=== PATIENT | female | born 1985 | race Caucasian/White ===

== ENCOUNTER 2018-09-25 10:09 | Day surgery (SDC) | payer OTHER ==
[2018-09-25 10:51] VITALS: BP 128/73; TEMP 98.7; BMI 22.2
[2018-09-25 11:17] LABS: Bilirubin Negative (Negative); Blood, Urine Large (Negative); Clarity CLEAR (Clear); Glucose, Urine (Dipstick) Negative (Negative); Leukocyte Negative (Negative); Nitrite Negative (Negative); Protein, Urine (Dipstick) Negative (Neg-Trace); Specific Gravity, Urine 1.003 (1.002-1.036); Urobilinogen 0.2 mg/dL (0.2-1.0); pH, Urine 7.5 (5.0-9.0)
[2018-09-25 11:23] LABS: Bacteria/HPF None Seen HPF (None Seen); Hyaline Casts/LPF 0-3 HYALINE CAST LPF (0-3 Hyaline); Pathc Cast-AUWi Flag 0.43 (0-2.49); RBC/HPF 21-50 HPF (0-3); Squamous Epithelial 0-3 HPF (0-3); WBC/HPF None Seen HPF (0-3)
--- NOTE | 2018-09-25 12:15 | PDOC.LDHP ---
Labor and Delivery H&P Chief complaint: other (back pain, suprapubic pressure) HPI: 33 y/o at 27w5d, patient of Dr. Ansari, presents with urinary frequency, dysuria, and right flank pain. She reports she has had urinary frequency for the last few days but today had a sudden onset of pain and dysuria. Has history of kidney stones and UTI. Also c/o occasional ctx. Denies VB, LOF, or decreased FM. ROS neg for HEENT, cv, pulm, gi, gu, neuro, psych, skin, musculoskeletal or constitutional symptoms other than mentioned above. OB History Details: 1 prior term Current complications: other (subchorionic hematoma - resolved) Past Medical History: UTIs, PCOS, kidney stones Current medications: pre-jc vitamins Previous surgical history: none Allergies/Adverse Reactions: Allergies Allergy/AdvReac Type Severity Reaction Status Date / Time No Known Allergies Allergy Verified 09/25/18 10:43 Social history: none - Physical Exam Vital signs reviewed and normal: yes General: NAD, resting Lungs: nonlabored breathing Abdomen: gravid Extremeties: no edema FHT: category 1 (140s, mod variability, + accels, no decels) Leigh contractions every: occasional - Vaginal Exam cm dilated: 1 (FT, unchanged after 1 hour) Effacement: 25% Station: -3 - Assessment 33 y/o at 27w5d with 8mm right sided kidney stone on US. Given Rx for flomax and Tylenol #3, disp #15. - Plan -: D/c home with precautions. Advised to follow up in clinic Thursday per Dr. Stockton.
[2018-09-25] MEDS ORDERED: HYDROcodone/Acetaminophen 5/325 mg Tablet PO SCH (13:30)
--- NOTE | 2018-09-25 14:21 | ULT ---
BILATERAL RENAL ULTRASOUND: Date: 09/25/18 HISTORY: Right flank pain, 28 weeks female. FINDINGS: The right kidney measures 11.4 cm in length and the left kidney measures 11.0 cm. There is right-side d hydronephrosis. No left-sided hydronephrosis is seen. No renal masses are identified. There is an 8 .0 mm shadowing echogenic focus in the right kidney. The urinary bladder is empty. IMPRESSION: 1. Right-sided hydronephrosis. 2. Probable 8.0 mm right renal calculus. POS: JANE
== END 2018-09-25 13:55 | disposition home health service (06) ==
LOC: L&D/OP 10:09
PROVIDERS: ATTEND Obstetrics & Gynecology
DX: O99.89 Other specified diseases and conditions complicating pregnancy, childbirth and the puerperium (principal); N13.2 Hydronephrosis with renal and ureteral calculous obstruction; Z3A.27 27 weeks gestation of pregnancy
CPT/HCPCS: 76770; 81001; 99284

== ENCOUNTER 2018-11-30 11:29 | Inpatient (IN) | payer OTHER ==
[2018-11-30] MEDS ORDERED: Bupivacaine 0.25% HCL 30 ML VIAL ONE (11:45)
[2018-11-30] MEDS ORDERED: Lidocaine 2% MPF 10 ML AMP (For Epidural Use) ONE (11:45)
[2018-11-30] MEDS ORDERED: Butorphanol Tartrate 1 MG/ML VIAL SLOW IVP PRN (12:26)
[2018-11-30] MEDS ORDERED: Misoprostol 200 MCG TAB PR PRN (12:26)
[2018-11-30] MEDS ORDERED: HYDROcodone/Acetaminophen 5/325 mg Tablet PO PRN ×2 (12:26)
[2018-11-30] MEDS ORDERED: Docusate 100 MG CAP PO PRN (12:26)
[2018-11-30] MEDS: Lactated Ringer's 1,000 ML IV SCH ×2 (12:26→15:48)
[2018-11-30] MEDS ORDERED: Diphenoxylate HCl/Atropine Tablet PO PRN ×2 (12:26)
[2018-11-30] MEDS ORDERED: Promethazine HCl 25 MG/ML VIAL IM PRN ×2 (12:26→15:16)
[2018-11-30] MEDS ORDERED: Acetaminophen 500 MG TAB PO PRN (12:26)
[2018-11-30] MEDS ORDERED: Zolpidem Tartrate 5 MG TAB PO PRN ×2 (12:26→17:58)
[2018-11-30] MEDS ORDERED: NS w/ Oxytocin 10 units 500 ML IV SCH (12:26)
[2018-11-30] MEDS ORDERED: Ondansetron PF 4 MG/2 ML Vial IVP PRN ×3 (12:26→17:58)
[2018-11-30] MEDS ORDERED: Lidocaine 1% (PF) 30 ML VIAL SC PRN (12:26)
[2018-11-30] MEDS ORDERED: NS / Oxytocin 40 units/1000ml 1,000 ML IV PRN (12:26)
[2018-11-30] MEDS ORDERED: Ibuprofen 800 MG TAB PO PRN (12:26)
[2018-11-30 12:30] VITALS: BMI 25.2
[2018-11-30 13:28] LABS: Hemoglobin 10.8 g/dL (12.0-16.0); Mean Corpuscular HGB CONC 31.9 g/dL (32.0-36.0); Mean Corpuscular Hemoglobin 30.6 pg (27.0-31.0); Mean Platelet Volume 9.5 fL (7.4-10.4); Platelet Count 203 thou/uL (130-400); RBC Distribution Width 11.7 % (11.5-14.5); Red Blood Cell (RBC) Count 3.54 mill/uL (4.20-5.40); White Blood Cell (WBC) Count 11.2 thou/uL (4.8-10.8)
[2018-11-30] MEDS ORDERED: Fentanyl 4 mcg/Bup 0.1% Cadd 100 ML ONE (13:30)
[2018-11-30] MEDS ORDERED: Lidocaine 1.5%/Epinephrine 1:200,000 5 ML AMPUL IJ ONE (13:30)
[2018-11-30 13:57] LABS: Syphilis Antibody Nonreactive (Nonreactive); Syphilis Antibody Index 0.03 S/CO (<1.00 Non-Reactive)
[2018-11-30 13:58] LABS: HBSAg Index 0.18 S/CO (0-0.99); Hep B Surf Ag Non-Reactive S/CO (NonReactive)
[2018-11-30] MEDS ORDERED: Naloxone HCl 0.4 mg/ml Vial IVP PRN ×2 (15:16)
[2018-11-30] MEDS ORDERED: diphenhydrAMINE 50 MG/ML VIAL IVP PRN (15:16)
[2018-11-30] MEDS ORDERED: Acetaminophen 325 MG TAB PO PRN (15:16)
[2018-11-30] MEDS ORDERED: ePHEDrine/0.9% NaCl/PF SYRINGE 50 mg/10 ml SLOW IVP PRN (15:16)
[2018-11-30] MEDS ORDERED: Eucerin (Mineral Oil/Petrolatum,White) 30 gm Jar TOP PRN (15:16)
[2018-11-30] MEDS ORDERED: Lactated Ringer's 500 ML IV PRN (15:16)
[2018-11-30] MEDS ORDERED: Fentanyl 4 mcg/Bupivacaine 0.1% Cassette 100 ML EPIDURAL SCH (15:30)
[2018-11-30] MEDS ORDERED: Communication Order-Pharmacy FS SCH (15:30)
[2018-11-30] MEDS ORDERED: diphenhydrAMINE 25 MG CAP PO PRN (17:58)
[2018-11-30] MEDS ORDERED: Acetaminophen/Codeine 30-300mg Tablet PO PRN ×2 (17:58)
[2018-11-30] MEDS ORDERED: Preparation H Ointment 28 GM TUBE PR PRN (17:58)
[2018-11-30] MEDS ORDERED: Adacel (T-DAP) 0.5 ML SYRINGE IM ONE (17:58)
[2018-11-30] MEDS ORDERED: Bisacodyl 10 MG SUPP PR PRN (17:58)
[2018-11-30] MEDS ORDERED: Lanolin Ointment 7 GM TUBE TOP PRN (17:58)
[2018-11-30] MEDS ORDERED: NS / Oxytocin 40 units/1000ml 1,000 ML IV SCH (18:00)
[2018-11-30] MEDS: Ampicillin/Sulbactam 3 GM in Sodium Chloride 0.9% 100 ML IVPB SCH ×2 (20:37→22:52)
[2018-11-30] MEDS: Docusate Calcium (SURFAK) 240 MG CAP PO SCH (21:29)
[2018-11-30] MEDS: Ibuprofen 800 MG TAB PO SCH (21:29)
[2018-11-30] MEDS: traMADol HCl 50 MG TAB PO PRN (22:52)
[2018-12-01] MEDS: Ampicillin/Sulbactam 3 GM in Sodium Chloride 0.9% 100 ML IVPB SCH ×3 (02:32→08:44)
[2018-12-01] MEDS: traMADol HCl 50 MG TAB PO PRN (03:46)
[2018-12-01] MEDS: Ibuprofen 800 MG TAB PO SCH ×3 (06:07→21:19)
[2018-12-01 07:02] LABS: Hemoglobin 9.6 g/dL (12.0-16.0); Mean Corpuscular HGB CONC 32.7 g/dL (32.0-36.0); Mean Corpuscular Hemoglobin 31.4 pg (27.0-31.0); Mean Platelet Volume 9.3 fL (7.4-10.4); Platelet Count 196 thou/uL (130-400); RBC Distribution Width 11.7 % (11.5-14.5); Red Blood Cell (RBC) Count 3.06 mill/uL (4.20-5.40); White Blood Cell (WBC) Count 11.9 thou/uL (4.8-10.8)
[2018-12-01] MEDS: Docusate Calcium (SURFAK) 240 MG CAP PO SCH ×2 (08:47→21:19)
[2018-12-01] MEDS: Prenatal Vitamin 1 TAB PO SCH (08:47)
[2018-12-01] MEDS: Ferrous Sulfate 325 MG TAB PO SCH ×2 (08:48→18:28)
[2018-12-01] MEDS ORDERED: Sodium Chloride 0.9% 10 ML ONE (12:30)
[2018-12-01] MEDS ORDERED: traMADol HCl 50 MG TAB PO PRN ×3 (13:06→13:11)
[2018-12-01] MEDS ORDERED: Benzocaine/Menthol 20-0.5% 60 ML CAN TOP PRN (13:06)
[2018-12-01] MEDS: Milk Of Magnesia 30 ML UDCUP PO PRN (21:19)
[2018-12-01] MEDS ORDERED: Witch Hazel-Glycerin 1 EACH JAR TOP PRN (21:40)
[2018-12-02] MEDS: Ibuprofen 800 MG TAB PO SCH (06:12)
[2018-12-02 08:08] VITALS: BP 112/74; TEMP 97.6
[2018-12-02] MEDS: Prenatal Vitamin 1 TAB PO SCH (08:11)
[2018-12-02] MEDS: Docusate Calcium (SURFAK) 240 MG CAP PO SCH (08:11)
[2018-12-02] MEDS: Ferrous Sulfate 325 MG TAB PO SCH (08:12)
[2018-12-02] MEDS: Milk Of Magnesia 30 ML UDCUP PO PRN (08:13)
== END 2018-12-02 11:48 | disposition home or self-care (01) | DRG 768 ==
LOC: L&D/OP 11:29 → L&D 13:03 → 3SE 23:15
PROVIDERS: ADMIT Obstetrics & Gynecology; ATTEND Obstetrics & Gynecology
PROC: 10E0XZZ Delivery of Products of Conception, External Approach (ICD-10-PCS; principal; 2018-11-30)
PROC: 0DQP0ZZ Repair Rectum, Open Approach (ICD-10-PCS; 2018-11-30)
PROC: 10907ZC Drainage of Amniotic Fluid, Therapeutic from Products of Conception, Via Natural or Artificial Opening (ICD-10-PCS; 2018-11-30)
DX: O99.89 Other specified diseases and conditions complicating pregnancy, childbirth and the puerperium (principal); Z37.0 Single live birth; O70.3 Fourth degree perineal laceration during delivery; N20.0 Calculus of kidney; Z3A.37 37 weeks gestation of pregnancy
CPT/HCPCS: 36415; 51702; 85027; 86780; 86850; 86900; 86901; 87340; 90715; J0295; J2001; J3490; J7050; S0020